=== PATIENT | female | born 1980 | race Caucasian/White ===

== ENCOUNTER 2019-11-13 16:32 | Emergency (ER) | payer SELFPAY ==
--- NOTE | 2019-11-13 16:43 | EDM.PDOC ---
ED HPI GENERAL MEDICAL PROBLEM - General Chief Complaint: Abdominal Pain Stated Complaint: STOMACH PAIN Time Seen by Provider: 11/13/19 16:36 Source of Information: Reports: Patient History Limitations: Reports: No Limitations - History of Present Illness INITIAL COMMENTS - FREE TEXT/NARRATIVE: HISTORY AND PHYSICAL: History of present illness: Patient is a 39-year-old female who presents to the emergency room with complaints of left flank and left upper quadrant pain which started approximately 1 hour prior to arrival. Patient states she is concerned she has a kidney stone although besides the flank and abdominal pain she has not had any urinary symptoms. Has had nausea, "but I think it's because I'm in so much pain". Patient denies any fever, chills, headache, change in vision, syncope or near syncope. Denies any chest pain, back pain, shortness of breath or cough. Denies any vomiting, diarrhea, constipation or dysuria. Has not noted any blood in urine or stool. Denies any chance of , currently on her menses. Patient has been eating and drinking appropriately. Denies any alcohol abuse. Review of systems: As per history of present illness and below otherwise all systems reviewed and negative. Past medical history: As per history of present illness and as reviewed below otherwise noncontributory. Surgical history: As per history of present illness and as reviewed below otherwise noncontributory. Social history: See social history for further information Family history: As per history of present illness and as reviewed below otherwise noncontributory. Physical exam: General: Well developed and well nourished 39 year old female. Alert and orientated x 3. Nontoxic appearing and in no acute distress. HEENT: Atraumatic, normocephalic, pupils equal and reactive bilaterally, negative for conjunctival pallor or scleral icterus, mucous membranes moist, trachea midline. No drooling or trismus noted. No meningeal signs. No hot potato voice noted. Lungs: Clear to auscultation, breath sounds equal bilaterally, chest nontender. Heart: S1S2, regular rate and rhythm without overt murmur Abdomen: Soft, nondistended, LUQ tenderness. Negative for masses or hepatosplenomegaly. Left sided costovertebral tenderness. Skin: Intact, warm, dry. No lesions or rashes noted. Extremities: Atraumatic, moves all extremities per self without difficulty or deficits, negative for cords or calf pain. Neurovascular unremarkable. Neuro: Awake, alert, oriented. Cranial nerves II through XII unremarkable. Cerebellum unremarkable. Motor and sensory unremarkable throughout. Exam nonfocal. Notes: CT shows dilated left ureter with a 2.2 mm stone seen at the UVJ. 7.7 mm nonobstructing calculus in the mid left kidney. I did call Dr. Hare to discuss patient follow-up. He states that this patient can follow-up as needed in the next 7 to 10 days if she feels the pain has not resolved. All findings were shared with the patient. Supportive care measures were reviewed and discussed. Voices understanding and is agreeable to plan of care. Denies any further questions or concerns at this time. Diagnostics: CBC, CMP, Lipase, UA, HCGU Therapeutics: IV fluids, Zofran, Toradol Prescription: Reva, Flomax Impression: Kidney Stone, Left Plan: 1. Increase your oral fluids. 2. Take your medications as prescribed. Call is a narcotic pain medication. Please do not take this medication while driving or needing to be functioning outside of the house as it will cause drowsiness. You can take Ibuprofen for breakthrough pain as well. 3. Follow up with Urology, Dr Yancey as we discussed. Return to the ED as needed as discussed. Definitive disposition and diagnosis as appropriate pending reevaluation and review of above. Left Upper Abdomen Pain Score (Numeric/FACES): 10 - Related Data Allergies Allergy/AdvReac Type Severity Reaction Status Date / Time No Known Allergies Allergy Verified 11/13/19 16:49 Home Meds: Home Meds Acetaminophen/HYDROcodone [Reva 325-5 MG] 1 dose PO Q4H #20 tablet 11/13/19 [Rx ] Tamsulosin HCl [Flomax] 0.4 mg PO DAILY #10 capsule 11/13/19 [Rx] Past Medical History - Past Health History Medical/Surgical History: Denies Medical/Surgical History HEENT History: Reports: None Cardiovascular History: Reports: Heart Murmur Psychiatric History: Reports: None - Infectious Disease History Infectious Disease History: Reports: None - Past Surgical History HEENT Surgical History: Reports: Oral Surgery Social & Family History - Caffeine Use Caffeine Use: Reports: None - Sexual History Sexual History: Reports: Single Partner - Living Situation & Occupation Living situation: Reports: ED ROS GENERAL - Review of Systems Review Of Systems: Comprehensive ROS is negative, except as noted in HPI. ED EXAM, RENAL/ - Physical Exam Exam: See Below (See dictation) Course - Vital Signs Last Recorded V/S: Last Vital Signs Temp 96.7 F L 11/13/19 18:14 Pulse 76 11/13/19 18:35 Resp 18 11/13/19 18:35 BP 93/50 L 11/13/19 18:35 Pulse Ox 100 11/13/19 18:35 - Orders/Labs/Meds Labs: Laboratory Tests 11/13/19 11/13/19 11/13/19 Range/Units 16:48 16:48 17:00 WBC 8.87 (4.0-11.0) K/uL RBC 4.29 L (4.30-5.90) M/uL Hgb 12.1 (12.0-16.0) g/dL Hct 38.2 (36.0-46.0) % MCV 89.0 (80.0-98.0) fL MCH 28.2 (27.0-32.0) pg MCHC 31.7 (31.0-37.0) g/dL RDW Std Deviation 43.3 (28.0-62.0) fl RDW Coeff of Callum 13 (11.0-15.0) % Plt Count 262 (150-400) K/uL MPV 10.00 (7.40-12.00) fL Neut % (Auto) 71.2 (48.0-80.0) % Lymph % (Auto) 19.7 (16.0-40.0) % Randolph % (Auto) 8.1 (0.0-15.0) % Eos % (Auto) 0.8 (0.0-7.0) % Baso % (Auto) 0.2 (0.0-1.5) % Neut # (Auto) 6.3 H (1.4-5.7) K/uL Lymph # (Auto) 1.8 (0.6-2.4) K/uL Randolph # (Auto) 0.7 (0.0-0.8) K/uL Eos # (Auto) 0.1 (0.0-0.7) K/uL Baso # (Auto) 0.0 (0.0-0.1) K/uL Nucleated RBC % 0.0 /100WBC Nucleated RBCs # 0 K/uL Sodium (136-145) mmol/L Potassium (3.5-5.1) mmol/L Chloride (98-107) mmol/L Carbon Dioxide (21.0-32.0) mmol/L BUN (7.0-18.0) mg/dL Creatinine (0.6-1.0) mg/dL Est Cr Clr Drug Dosing mL/min Estimated GFR (MDRD) ml/min Glucose (74-106) mg/dL Calcium (8.5-10.1) mg/dL Total Bilirubin (0.2-1.0) mg/dL AST (15-37) IU/L ALT (14-63) IU/L Alkaline Phosphatase (46-116) U/L Total Protein (6.4-8.2) g/dL Albumin (3.4-5.0) g/dL Globulin (2.6-4.0) g/dL Albumin/Globulin Ratio (0.9-1.6) Lipase (73-393) U/L Urine Color YELLOW Urine Appearance HAZY Urine pH 5.5 (5.0-8.0) Ur Specific [place] >= 1.030 (1.001-1.035) Urine Protein NEGATIVE (NEGATIVE) mg/dL Urine Glucose (UA) NEGATIVE (NEGATIVE) mg/dL Urine Ketones NEGATIVE (NEGATIVE) mg/dL Urine Occult Blood LARGE H (NEGATIVE) Urine Nitrite NEGATIVE (NEGATIVE) Urine Bilirubin NEGATIVE (NEGATIVE) Urine Urobilinogen 0.2 (<2.0) EU/dL Ur Leukocyte Esterase NEGATIVE (NEGATIVE) Urine RBC 2-6 (0-2/HPF) Urine WBC 0-3 (0-5/HPF) Ur Epithelial Cells MODERATE (NONE-FEW) Urine Bacteria FEW (NEGATIVE) Urine Mucus LIGHT (NONE-MOD) Urine HCG, Qual NEGATIVE (NEGATIVE) 11/13/19 Range/Units 17:00 WBC (4.0-11.0) K/uL RBC (4.30-5.90) M/uL Hgb (12.0-16.0) g/dL Hct (36.0-46.0) % MCV (80.0-98.0) fL MCH (27.0-32.0) pg MCHC (31.0-37.0) g/dL RDW Std Deviation (28.0-62.0) fl RDW Coeff of Callum (11.0-15.0) % Plt Count (150-400) K/uL MPV (7.40-12.00) fL Neut % (Auto) (48.0-80.0) % Lymph % (Auto) (16.0-40.0) % Randolph % (Auto) (0.0-15.0) % Eos % (Auto) (0.0-7.0) % Baso % (Auto) (0.0-1.5) % Neut # (Auto) (1.4-5.7) K/uL Lymph # (Auto) (0.6-2.4) K/uL Randolph # (Auto) (0.0-0.8) K/uL Eos # (Auto) (0.0-0.7) K/uL Baso # (Auto) (0.0-0.1) K/uL Nucleated RBC % /100WBC Nucleated RBCs # K/uL Sodium 142 (136-145) mmol/L Potassium 4.1 (3.5-5.1) mmol/L Chloride 104 (98-107) mmol/L Carbon Dioxide 28.9 (21.0-32.0) mmol/L BUN 20 H (7.0-18.0) mg/dL Creatinine 0.8 (0.6-1.0) mg/dL Est Cr Clr Drug Dosing 76.39 mL/min Estimated GFR (MDRD) > 60.0 ml/min Glucose 103 (74-106) mg/dL Calcium 8.6 (8.5-10.1) mg/dL Total Bilirubin 0.2 (0.2-1.0) mg/dL AST 16 (15-37) IU/L ALT 18 (14-63) IU/L Alkaline Phosphatase 61 (46-116) U/L Total Protein 7.2 (6.4-8.2) g/dL Albumin 3.8 (3.4-5.0) g/dL Globulin 3.4 (2.6-4.0) g/dL Albumin/Globulin Ratio 1.1 (0.9-1.6) Lipase 147 (73-393) U/L Urine Color Urine Appearance Urine pH (5.0-8.0) Ur Specific [place] (1.001-1.035) Urine Protein (NEGATIVE) mg/dL Urine Glucose (UA) (NEGATIVE) mg/dL Urine Ketones (NEGATIVE) mg/dL Urine Occult Blood (NEGATIVE) Urine Nitrite (NEGATIVE) Urine Bilirubin (NEGATIVE) Urine Urobilinogen (<2.0) EU/dL Ur Leukocyte Esterase (NEGATIVE) Urine RBC (0-2/HPF) Urine WBC (0-5/HPF) Ur Epithelial Cells (NONE-FEW) Urine Bacteria (NEGATIVE) Urine Mucus (NONE-MOD) Urine HCG, Qual (NEGATIVE) Meds: Medications Discontinued Medications Generic Name Dose Route Start Last Admin Trade Name Freq PRN Reason Stop Dose Admin Sodium Chloride 1,000 mls @ 999 mls/hr 11/13/19 16:48 11/13/19 17:00 Normal Saline IV 11/13/19 17:48 999 mls/hr STAT ONE Administration Ketorolac Tromethamine 30 mg 11/13/19 16:48 11/13/19 17:01 Toradol IVPUSH 11/13/19 16:49 30 mg ONETIME ONE Administration Morphine Sulfate 2 mg 11/13/19 16:56 11/13/19 17:21 Morphine IVPUSH 11/13/19 16:57 2 mg ONETIME ONE Administration Morphine Sulfate 2 mg 11/13/19 17:40 11/13/19 17:50 Morphine IVPUSH 11/13/19 17:41 2 mg ONETIME ONE Administration Ondansetron HCl 4 mg 11/13/19 16:48 11/13/19 17:00 Zofran IVPUSH 11/13/19 16:49 4 mg ONETIME ONE Administration Departure - Departure Time of Disposition: 18:13 Disposition: Home, Self-Care 01 Clinical Impression: Kidney stone on left side - Discharge Information Prescriptions: Acetaminophen/HYDROcodone [Reva 325-5 MG] 1 dose PO Q4H #20 tablet Tamsulosin HCl [Flomax] 0.4 mg PO DAILY #10 capsule Instructions: Kidney Stones, [id number] Referrals: PCP,None [Primary Care Provider] - Forms: ED Department Discharge Additional Instructions: The following information is given to patients seen in the emergency department who are being discharged to home. This information is to outline your options for follow-up care. We provide all patients seen in our emergency department with a follow-up referral. The need for follow-up, as well as the timing and circumstances, are variable depending upon the specifics of your emergency department visit. If you don't have a primary care physician on staff, we will provide you with a referral. We always advise you to contact your personal physician following an emergency department visit to inform them of the circumstance of the visit and for follow-up with them and/or the need for any referrals to a consulting specialist. The emergency department will also refer you to a specialist when appropriate. This referral assures that you have the opportunity for follow-up care with a specialist. All of these measure are taken in an effort to provide you with optimal care, which includes your follow-up. Under all circumstances we always encourage you to contact your private physician who remains a resource for coordinating your care. When calling for follow-up care, please make the office aware that this follow-up is from your recent emergency room visit. If for any reason you are refused follow-up, please contact the [facility] Emergency Department at and asked to speak to the emergency department charge nurse. [facility] [address] [place] [address] [place] [address] 1. Increase your oral fluids. 2. Take your medications as prescribed. Call is a narcotic pain medication. Please do not take this medication while driving or needing to be functioning outside of the house as it will cause drowsiness. You can take Ibuprofen for breakthrough pain as well. 3. Follow up with Urology, Dr Yancey as we discussed. Return to the ED as needed as discussed. Sepsis Event Note - Focused Exam Vital Signs: Vital Signs Temp Pulse Resp BP Pulse Ox 11/13/19 18:35 76 18 93/50 L 100 11/13/19 18:14 96.7 F L 74 18 90/45 L 100 11/13/19 17:30 73 20 91/58 L 100 11/13/19 16:46 96.1 F L 82 20 98/56 L 100 Date Exam was Performed: 11/13/19 Time Exam was Performed: 18:48
[2019-11-13] MEDS ORDERED: Ondansetron 4 MG/2 ML SDV IVPUSH ONE (16:48)
[2019-11-13] MEDS ORDERED: Ketorolac 30 MG/ML SDV IVPUSH ONE (16:48)
[2019-11-13] MEDS ORDERED: Sodium Chloride 0.9% 1,000 ML IV ONE (16:48)
[2019-11-13] MEDS ORDERED: Morphine 2 MG/ML Syringe IVPUSH ONE ×2 (16:56→17:40)
[2019-11-13 17:38] LABS: BLOOD UREA NITROGEN,BUN 20 mg/dL (7.0-18.0); CARBON DIOXIDE,CO2 28.9 mmol/L (21.0-32.0); CHLORIDE,CL 104 mmol/L (98-107); GLUCOSE RANDOM 103 mg/dL (74-106); LIPASE 147 U/L (73-393); POTASSIUM,K 4.1 mmol/L (3.5-5.1); SODIUM,NA 142 mmol/L (136-145)
--- NOTE | 2019-11-13 17:58 | CT ---
CT abdomen and pelvis Technique: Multiple axial sections were obtained from above the dome of the diaphragm inferiorly through the pubic symphysis. Intravenous and oral contrast not utilized. Study performed as a ureteral stone protocol. Findings: Left ureter is mildly dilated. Small calcification is noted within the distal left ureter at the UVJ measuring about 2.2 mm. No other abnormal calcifications are appreciated along the course of the ureters. Large calcification within the mid left kidney is seen measuring 7.7 cm. This presumably represents a nonobstructing calculus. No other abnormal calcifications are seen. Visualized lung bases show nothing acute. Liver contains no focal parenchymal abnormality. Spleen appears within normal limits. Adrenal glands show no nodule. Pancreas shows no discrete abnormality. Aorta shows no aneurysm. Gallbladder contains no calcified gallstones. No retroperitoneal adenopathy or mesenteric abnormalities are seen. No pelvic mass or adenopathy is seen. No free fluid or inflammatory change is seen. Impression: 1. Dilated left ureter with a 2.2 mm stone being seen at the UVJ. 2. 7.7 mm nonobstructing calculus within the mid left kidney. 3. No additional abnormality is appreciated on noncontrast CT study of the abdomen and pelvis. Diagnostic code #3 This report was dictated in MDT
[2019-11-13 18:35] VITALS: BP 93/50; PULSE 76
== END 2019-11-13 18:35 | disposition home or self-care (01) ==
LOC: MW.ED 16:32
DX: N20.2 Calculus of kidney with calculus of ureter (principal); Z79.899 Other long term (current) drug therapy
CPT/HCPCS: 36415; 74176; 80053; 81001; 81025; 83690; 85025; 96361; 96374; 96375; 99284; J1885; J2270; J2405; J7030

== ENCOUNTER 2021-03-11 08:13 | Day surgery (SDC) | payer BC ==
[~2021-03-11 08:13] MED LIST: Sodium Chloride 0.9% 10 ML SDV IV PRN; Sodium Chloride 0.9% 10 ML Syringe FLUSH PRN; Sodium Chloride 0.9% 2.5 ML Syringe FLUSH PRN; ceFAZolin 2 GM in Premix Bag 1 BAG IV ONE
[2021-03-11] MEDS ORDERED: Midazolam 1 MG/ML 2 ML SDV ONE (08:20)
[2021-03-11] MEDS ORDERED: Propofol 200 MG/20 ML SDV ONE (08:20)
[2021-03-11] MEDS ORDERED: fentaNYL 250 MCG/5 ML SDV ONE (08:20)
[2021-03-11] MEDS ORDERED: Ondansetron 4 MG/2 ML SDV ONE (08:22)
[2021-03-11] MEDS ORDERED: Lidocaine 2% 5 ML SDV ONE (08:22)
[2021-03-11] MEDS ORDERED: Glycopyrrolate 0.2 MG/ML SDV ONE (08:22)
[2021-03-11] MEDS ORDERED: Sugammadex Sodium 200 MG/2 ML VIAL ONE (08:22)
[2021-03-11] MEDS ORDERED: Ketorolac 30 MG/ML SDV ONE (08:22)
[2021-03-11] MEDS ORDERED: Rocuronium Bromide 50 MG/5 ML Syringe ONE (08:22)
[2021-03-11] MEDS: Lactated Ringers 1,000 ML IV SCH ×2 (09:07→13:31)
--- NOTE | 2021-03-11 09:31 | PCM.PREANE ---
Preanesthetic Assessment - Anesthesia/Transfusion/Family Hx Anesthesia History: Prior Anesthesia Without Reaction Transfusion History: No Prior Transfusion(s) - Review of Systems Pulmonary: Other (Quit smoking cigarettes 09/09 now vapes) - Physical Assessment NPO Status Date: 03/10/21 NPO Status Time: 22:30 Vital Signs: Last Vital Signs Temp 37.0 C 03/11/21 09:06 Pulse 80 03/11/21 09:06 Resp 16 03/11/21 09:06 BP 94/50 L 03/11/21 09:06 Pulse Ox 100 03/11/21 09:06 Height: 5 ft 2 in Weight: 72.575 kg ASA Class: 2 Airway Class: Mallampati = 2 Thyro-Mental Finger Breadths: 3 Mouth Opening Finger Breadths: 3 - Lab Values: Laboratory Last Values WBC 7.72 K/uL (4.0-11.0) 03/09/21 11:48 RBC 4.45 M/uL (4.30-5.90) 03/09/21 11:48 Hgb 12.5 g/dL (12.0-16.0) 03/09/21 11:48 Hct 39.0 % (36.0-46.0) 03/09/21 11:48 MCV 87.6 fL (80.0-98.0) 03/09/21 11:48 MCH 28.1 pg (27.0-32.0) 03/09/21 11:48 MCHC 32.1 g/dL (31.0-37.0) 03/09/21 11:48 RDW Std Deviation 45.0 fl (28.0-62.0) 03/09/21 11:48 RDW Coeff of Callum 14 % (11.0-15.0) 03/09/21 11:48 Plt Count 301 K/uL (150-400) 03/09/21 11:48 MPV 10.60 fL (7.40-12.00) 03/09/21 11:48 Nucleated RBC % 0.0 /100WBC 03/09/21 11:48 Nucleated RBCs # 0 K/uL 03/09/21 11:48 Sodium 139 mmol/L (136-145) 03/09/21 11:48 Potassium 4.2 mmol/L (3.5-5.1) 03/09/21 11:48 Chloride 104 mmol/L (98-107) 03/09/21 11:48 Carbon Dioxide 32.5 mmol/L (21.0-32.0) H 03/09/21 11:48 BUN 13 mg/dL (7.0-18.0) 03/09/21 11:48 Creatinine 0.8 mg/dL (0.6-1.0) 03/09/21 11:48 Est Cr Clr Drug Dosing 73.93 mL/min 03/09/21 11:48 Estimated GFR (MDRD) > 60.0 ml/min 03/09/21 11:48 Glucose 77 mg/dL (74-106) 03/09/21 11:48 Calcium 8.6 mg/dL (8.5-10.1) 03/09/21 11:48 HCG, Qual NEGATIVE (NEG) 03/09/21 11:48 Blood Type A POSITIVE 03/09/21 11:48 Antibody Screen NEGATIVE 03/09/21 11:48 - Allergies Allergies/Adverse Reactions: Allergies Allergy/AdvReac Type Severity Reaction Status Date / Time No Known Allergies Allergy Verified 03/11/21 09:11 - Acknowledgements Anesthesia Type Planned: General Anesthesia Pt an Appropriate Candidate for the Planned Anesthesia: Yes Alternatives and Risks of Anesthesia Discussed w Pt/Guardian: Yes Pt/Guardian Understands and Agrees with Anesthesia Plan: Yes PreAnesthesia Questionnaire - Past Health History Medical/Surgical History: Denies Medical/Surgical History HEENT History: Reports: Other (See Below) Other HEENT History: wears glasses/contacts Cardiovascular History: Reports: None Respiratory History: Reports: None Gastrointestinal History: Reports: None Genitourinary History: Reports: Renal Calculus, Other (See Below) Other Genitourinary History: stress incontinence [employer] History: Reports: Dysfunctional Uterine Bleeding, Musculoskeletal History: Reports: None, Fracture Neurological History: Reports: None Psychiatric History: Reports: None Endocrine/Metabolic History: Reports: None Hematologic History: Reports: None Immunologic History: Reports: None Oncologic (Cancer) History: Reports: None Dermatologic History: Reports: None - Infectious Disease History Infectious Disease History: Reports: None - Past Surgical History Head Surgeries/Procedures: Reports: None HEENT Surgical History: Reports: Oral Surgery Cardiovascular Surgical History: Reports: None Respiratory Surgical History: Reports: None GI Surgical History: Reports: None Female Surgical History: Reports: Section Endocrine Surgical History: Reports: None Neurological Surgical History: Reports: None Musculoskeletal Surgical History: Reports: None Oncologic Surgical History: Reports: None Dermatological Surgical History: Reports: None - SUBSTANCE USE Tobacco Use Status *Q: Light Tobacco User Tobacco Use Within Last Twelve Months: Vaping - HOME MEDS Home Medications: Home Meds Ferrous Sulfate [Iron] 65 mg PO DAILY 03/05/21 [History] - CURRENT (IN HOUSE) MEDS Current Meds: Current Medications Lactated Ringer's (Ringers, Lactated) 1,000 mls @ 125 mls/hr IV ASDIRECTED NICOLE Last Admin: 03/11/21 09:07 Dose: 125 mls/hr Documented by: Sodium Chloride (Sodium Chloride 0.9% 10 Ml Syringe) 10 ml FLUSH ASDIRECTED PRN PRN Reason: Keep Vein Open Sodium Chloride (Sodium Chloride 0.9% 2.5 Ml Syringe) 2.5 ml FLUSH ASDIRECTED PRN PRN Reason: Keep Vein Open Sodium Chloride (Sodium Chloride 0.9% 10 Ml Sdv) 10 ml IV ASDIRECTED PRN PRN Reason: IV Use Discontinued Medications Fentanyl (Fentanyl 250 Mcg/5 Ml Sdv) Confirm Administered Dose 250 mcg .ROUTE .STK-MED ONE Stop: 03/11/21 08:21 Glycopyrrolate (Glycopyrrolate 0.2 Mg/Ml Sdv) Confirm Administered Dose 0.2 mg .ROUTE .STK-MED ONE Stop: 03/11/21 08:23 Cefazolin Sodium/Dextrose 2 gm (/ Premix) 50 mls @ 100 mls/hr IV ONETIME ONE Stop: 03/09/21 11:15 Ketorolac Tromethamine (Ketorolac 30 Mg/Ml Sdv) Confirm Administered Dose 30 mg .ROUTE .STK-MED ONE Stop: 03/11/21 08:23 Lidocaine (Lidocaine 2% 5 Ml Sdv) Confirm Administered Dose 5 ml .ROUTE .STK-MED ONE Stop: 03/11/21 08:23 Midazolam HCl (Midazolam 1 Mg/Ml 2 Ml Sdv) Confirm Administered Dose 2 mg .ROUTE .STK-MED ONE Stop: 03/11/21 08:21 Ondansetron HCl (Ondansetron 4 Mg/2 Ml Sdv) Confirm Administered Dose 4 mg .ROUTE .STK-MED ONE Stop: 03/11/21 08:23 Propofol (Propofol 200 Mg/20 Ml Sdv) Confirm Administered Dose 200 mg .ROUTE .STK-MED ONE Stop: 03/11/21 08:21 Rocuronium Orlinda (Rocuronium Or[place]inda 50 Mg/5 Ml Syringe) Confirm Administered Dose 50 mg .ROUTE .STK-MED ONE Stop: 03/11/21 08:23 Sugammadex Sodium (Sugammadex Sodium 200 Mg/2 Ml Vial) Confirm Administered Dose 200 mg .ROUTE .STK-MED ONE Stop: 03/11/21 08:23
[2021-03-11] MEDS ORDERED: Sodium Chloride 0.9% 20 ML ONE (09:36)
[2021-03-11] MEDS ORDERED: ceFAZolin 1 GM Vial ONE (09:36)
[2021-03-11] MEDS ORDERED: Ondansetron 4 MG/2 ML SDV IVPUSH PRN (10:54)
[2021-03-11] MEDS ORDERED: Promethazine 25 MG/ML SDV IM PRN (10:54)
[2021-03-11] MEDS ORDERED: Acetaminophen/oxyCODONE 325-5 MG Tab PO PRN (10:54)
[2021-03-11] MEDS ORDERED: Ketorolac 30 MG/ML SDV IVPUSH ONE (10:54)
--- NOTE | 2021-03-11 10:58 | PCM.OPNOTE ---
- General Post-Op/Procedure Note Date of Surgery/Procedure: 03/11/21 Operative Procedure(s): TVH,TVT and Custoscopy Pre Op Diagnosis: CLARISA, bleeding Post-Op Diagnosis: Same Anesthesia Technique: General ET Tube Primary Surgeon: Nikhil Hua EBL in mLs: 100 Complications: None Condition: Good Free Text/Narrative:: Intake & Output 03/10/21 03/11/21 03/11/21 22:59 06:59 14:59 Output Total 50 Balance -50
[2021-03-11] MEDS ORDERED: fentaNYL 100 MCG/2 ML SDV ONE (11:10)
[2021-03-11] MEDS ORDERED: Acetaminophen 1,000 MG in Premix Bag 1 BAG IV PRN (11:12)
[2021-03-11] MEDS: fentaNYL 100 MCG/2 ML SDV IVPUSH PRN ×2 (11:12→11:34)
[2021-03-11] MEDS ORDERED: HYDROmorphone 2 MG/ML Syringe IVPUSH PRN (11:13)
[2021-03-11] MEDS ORDERED: HYDROmorphone 2 MG/ML Syringe ONE (11:23)
[2021-03-11] MEDS: Morphine 4 MG/ML Syringe IVPUSH PRN ×2 (14:25→20:51)
--- NOTE | 2021-03-11 14:31 | OR ---
SURGEON: Nikhil Hua MD DATE OF PROCEDURE: 03/11/2021 PREOPERATIVE DIAGNOSES: Menometrorrhagia, stress urinary incontinence. POSTOPERATIVE DIAGNOSES: Menometrorrhagia, stress urinary incontinence. OPERATIONS PERFORMED: Total vaginal hysterectomy, bilateral salpingectomy preserving both ovaries, Solyx tension-free vaginal tape, and cystoscopy. PRIMARY SURGEON: Nikhil Hua MD THEATER MANAGER: OR tech. ANESTHESIA: General endotracheal intubation. ESTIMATED BLOOD LOSS: 100 mL. COMPLICATIONS: None. FINDINGS: Uterus is about 11 weeks' size. Both ovaries are essentially normal. INDICATION FOR SURGERY: [place] refer to the admit note. DESCRIPTION OF PROCEDURE: The patient was brought to the OR, properly identified, and after adequate level of anesthesia and the patient placed in lithotomy position, prepped and draped in sterile fashion as usual. Straight catheter was used to empty the bladder and a short weighted speculum placed in the vagina. The cervix was grasped with a single-tooth tenaculum and pulled about downward. Using electrocautery, circular incision in the vaginal mucosa around the cervix was done and then the posterior cul-de-sac was entered posteriorly with Seo scissors. The peritoneum and the vagina tagged posteriorly and a short weighted speculum was replaced with a long weighted speculum. The uterosacral ligament identified from both sides, clamped with a curved Zeppelin, transected with 2-0 Vicryl pop-off. The same thing was done with the cardinal ligament. The cervicovesical space was entered anteriorly and the bladder retracted completely away from the operative field and the anterior cul-de-sac was entered. The broad ligament was clamped with a curved Zeppelin from both sides, transected, and suture ligated with 2-0 Vicryl pop-off. The uterine vessel suture ligated at this step, and then the round ligament was clamped with a curved Zeppelin, transected, suture ligated in the same manner. The uterus delivered posteriorly and 90-degree Zeppelin is applied to the superior pedicle from both sides. The tube was included with the specimen, the ovary was preserved, and the superior pedicle tied with a free tie first, twice on both sides. Inspection of the operative field showed no oozing, no bleeding. We proceeded to close the vaginal cuff with 2-0 Vicryl interrupted [id number] suture. Then, attention was paid to the anterior vaginal wall. An inch and a half beneath the umbilicus was infiltrated with copious amount of saline and then opened in the midline and dissected in a tunneling fashion on both sides until I felt the pubic rami on both sides. Then, the Solyx TVT was placed into place with due amount of tension to elevate the urethrovesical angle. Once that was done, the vaginal cuff was closed with 2-0 Vicryl in a continuous interlocking for hemostasis. While we were doing the TVT, we asked the Anesthesia personnel to give the patient the dye, and cystoscopy was performed. The bladder was intact. Both ureteric orifices were seen with the dye coming from both of them. Satisfied with these findings, the procedure ended. The instrument and sponge count was correct. The patient tolerated the procedure well, went to recovery room in stable general condition. SANDRITA FLORES /[id number]
[2021-03-11] MEDS: Ketorolac 30 MG/ML SDV IVPUSH PRN (18:12)
[2021-03-11] MEDS ORDERED: Lactated Ringers 1,000 ML IV SCH (22:00)
[2021-03-12] MEDS: Ketorolac 30 MG/ML SDV IVPUSH PRN (00:24)
[2021-03-12] MEDS: Acetaminophen/oxyCODONE 325-5 MG Tab PO PRN ×2 (05:32→10:17)
[2021-03-12 07:12] LABS: BLOOD UREA NITROGEN,BUN 11 mg/dL (7.0-18.0); CARBON DIOXIDE,CO2 28.8 mmol/L (21.0-32.0); CHLORIDE,CL 106 mmol/L (98-107); GLUCOSE RANDOM 83 mg/dL (74-106); POTASSIUM,K 3.9 mmol/L (3.5-5.1); SODIUM,NA 141 mmol/L (136-145)
[2021-03-12] MEDS ORDERED: Acetaminophen 500 MG Tab PO ONE (08:13)
[2021-03-12 08:46] VITALS: BP 87/53; PULSE 71
--- NOTE | 2021-03-12 09:49 | PCM.SURGPN ---
- General Info Date of Service: 03/12/21 POD#: 1 Functional Status: Reports: Pain Controlled - Review of Systems General: Reports: No Symptoms HEENT: Reports: No Symptoms Pulmonary: Reports: No Symptoms Cardiovascular: Reports: No Symptoms Gastrointestinal: Reports: No Symptoms Genitourinary: Reports: No Symptoms Musculoskeletal: Reports: No Symptoms Skin: Reports: No Symptoms Neurological: Reports: No Symptoms Psychiatric: Reports: No Symptoms - Patient Data Vitals - Most Recent: Last Vital Signs Temp 36.0 C L 03/12/21 08:40 Pulse 71 03/12/21 08:40 Resp 15 03/12/21 08:40 BP 87/53 L 03/12/21 08:40 Pulse Ox 98 03/12/21 08:40 Weight - Most Recent: 72.575 kg I&O - Last 24 Hours: Intake & Output 03/11/21 03/12/21 03/12/21 22:59 06:59 14:59 Intake Total 1460 600 Output Total 500 Balance 960 600 Lab Results Last 24 Hrs: Laboratory Results - last 24 hr 03/12/21 03/12/21 Range/Units 05:18 05:18 WBC 10.58 (4.0-11.0) K/uL RBC 3.70 L (4.30-5.90) M/uL Hgb 10.5 L (12.0-16.0) g/dL Hct 32.4 L (36.0-46.0) % MCV 87.6 (80.0-98.0) fL MCH 28.4 (27.0-32.0) pg MCHC 32.4 (31.0-37.0) g/dL RDW Std Deviation 44.7 (28.0-62.0) fl RDW Coeff of Callum 14 (11.0-15.0) % Plt Count 249 (150-400) K/uL MPV 10.70 (7.40-12.00) fL Neut % (Auto) 73.6 (48.0-80.0) % Lymph % (Auto) 16.3 (16.0-40.0) % [place] % (Auto) 9.5 (0.0-15.0) % Eos % (Auto) 0.4 (0.0-7.0) % Baso % (Auto) 0.2 (0.0-1.5) % Neut # (Auto) 7.8 H (1.4-5.7) K/uL Lymph # (Auto) 1.7 (0.6-2.4) K/uL [place] # (Auto) 1.0 H (0.0-0.8) K/uL Eos # (Auto) 0.0 (0.0-0.7) K/uL Baso # (Auto) 0.0 (0.0-0.1) K/uL Nucleated RBC % 0.0 /100WBC Nucleated RBCs # 0 K/uL Sodium 141 (136-145) mmol/L Potassium 3.9 (3.5-5.1) mmol/L Chloride 106 (98-107) mmol/L Carbon Dioxide 28.8 (21.0-32.0) mmol/L BUN 11 (7.0-18.0) mg/dL Creatinine 0.7 (0.6-1.0) mg/dL Est Cr Clr Drug Dosing 84.49 mL/min Estimated GFR (MDRD) > 60.0 ml/min Glucose 83 (74-106) mg/dL Calcium 7.9 L (8.5-10.1) mg/dL Med Orders - Current: Current Medications Lactated Ringer's (Ringers, Lactated) 1,000 mls @ 125 mls[facility] Last Admin: 03/11/21 13:31 Dose: 125 mls/hr Documented by: Lactated Ringer's (Ringers, Lactated) 1,000 mls @ 125 [facility]ls[facility] Last Admin: 03/11/21 21:53 Dose: 125 mls/hr Documented by: Ketorolac Tromethamine (Ketorolac 30 Mg/Ml Sdv) 30 mg IVPUSH Q6H PRN PRN Reason: Pain (severe 7-10) Stop: 03/16/21 10:54 Last Admin: 03/12/21 00:24 Dose: 30 mg Documented by: Morphine Sulfate (Morphine 4 Mg/Ml Syringe) 4 mg IVPUSH Q2H PRN PRN Reason: Pain (severe 7-10) Last Admin: 03/11/21 20:51 Dose: 4 mg Documented by: Ondansetron HCl (Ondansetron 4 Mg/2 Ml Sdv) 4 mg IVPUSH Q6H PRN PRN Reason: Nausea/Vomiting Last Admin: 03/11/21 16:03 Dose: 4 mg Documented by: Oxycodone/Acetaminophen (Acetaminophen/Oxycodone 325-5 Mg Tab) 1 tab PO Q4H PRN PRN Reason: Pain (moderate 4-6) Last Admin: 03/12/21 05:32 Dose: 1 tab Documented by: Oxycodone/Acetaminophen (Acetaminophen/Oxycodone 325-5 Mg Tab) 2 tab PO Q4H PRN PRN Reason: Pain (moderate 4-6) Promethazine HCl (Promethazine 25 Mg/Ml Sdv) 25 mg IM Q6H PRN PRN Reason: Nausea/Vomiting Sodium Chloride (Sodium Chloride 0.9% 10 Ml Syringe) 10 ml FLUSH ASDIRECTED PRN PRN Reason: Keep Vein Open Sodium Chloride (Sodium Chloride 0.9% 2.5 Ml Syringe) 2.5 ml FLUSH ASDIRECTED PRN PRN Reason: Keep Vein Open Sodium Chloride (Sodium Chloride 0.9% 10 Ml Sdv) 10 ml IV ASDIRECTED PRN PRN Reason: IV Use Discontinued Medications Acetaminophen (Acetaminophen 500 Mg Tab) 1,000 mg PO ONETIME ONE Stop: 03/12/21 08:14 Last Admin: 03/12/21 08:28 Dose: 1,000 mg Documented by: Cefazolin Sodium (Cefazolin 1 Gm Vial) Confirm Administered Dose 2 gm .ROUTE .STK-MED ONE Stop: 03/11/21 09:37 Fentanyl (Fentanyl 250 Mcg/5 Ml Sdv) Confirm Administered Dose 250 mcg .ROUTE .STK-MED ONE Stop: 03/11/21 08:21 Fentanyl (Fentanyl 100 Mcg/2 Ml Sdv) Confirm Administered Dose 100 mcg .ROUTE .STK-MED ONE Stop: 03/11/21 11:11 Last Admin: 03/11/21 13:23 Dose: Not Given Documented by: Fentanyl (Fentanyl 100 Mcg/2 Ml Sdv) 50 mcg IVPUSH Q5M PRN PRN Reason: Pain Last Admin: 03/11/21 11:34 Dose: 50 mcg Documented by: Glycopyrrolate (Glycopyrrolate 0.2 Mg/Ml Sdv) Confirm Administered Dose 0.2 mg .ROUTE .STK-MED ONE Stop: 03/11/21 08:23 Hydromorphone HCl (Hydromorphone 2 Mg/Ml Syringe) 1 mg IVPUSH Q2H PRN PRN Reason: Abdominal Pain Last Admin: 03/11/21 11:27 Dose: 1 mg Documented by: Hydromorphone HCl (Hydromorphone 2 Mg/Ml Syringe) Confirm Administered Dose 2 mg .ROUTE .STK-MED ONE Stop: 03/11/21 11:24 Last Admin: 03/11/21 13:23 Dose: Not Given Documented by: Cefazolin Sodium/Dextrose 2 gm (/ Premix) 50 mls @ 100 mls/hr IV ONETIME ONE Stop: 03/09/21 11:15 Sodium Chloride (Normal Saline) Confirm Administered Dose 20 mls @ as directed .ROUTE .STK-MED ONE Stop: 03/11/21 09:37 Acetaminophen 1,000 mg/ Premix 100 mls @ 400 mls/hr IV Q6H PRN PRN Reason: Pain Ketorolac Tromethamine (Ketorolac 30 Mg/Ml Sdv) Confirm Administered Dose 30 mg .ROUTE .STK-MED ONE Stop: 03/11/21 08:23 Ketorolac Tromethamine (Ketorolac 30 Mg/Ml Sdv) 30 mg IVPUSH ONETIME ONE Stop: 03/11/21 10:55 Last Admin: 03/11/21 10:45 Dose: Not Given Documented by: Lidocaine (Lidocaine 2% 5 Ml Sdv) Confirm Administered Dose 5 ml .ROUTE .STK-MED ONE Stop: 03/11/21 08:23 Midazolam HCl (Midazolam 1 Mg/Ml 2 Ml Sdv) Confirm Administered Dose 2 mg .ROUTE .STK-MED ONE Stop: 03/11/21 08:21 Miscellaneous Medication (Phenylephrine Hcl In 0.9% Nacl 1 Mg/10 Ml Syringe) Confirm Administered Dose 1 mg .ROUTE .STK-MED ONE Stop: 03/11/21 09:55 Ondansetron HCl (Ondansetron 4 Mg/2 Ml Sdv) Confirm Administered Dose 4 mg .ROUTE .STK-MED ONE Stop: 03/11/21 08:23 Propofol (Propofol 200 Mg/20 Ml Sdv) Confirm Administered Dose 200 mg .ROUTE .STK-MED ONE Stop: 03/11/21 08:21 Rocuronium [place] (Rocuronium [place] 50 Mg/5 Ml Syringe) Confirm Administered Dose 50 mg .ROUTE .STK-MED ONE Stop: 03/11/21 08:23 Sugammadex Sodium (Sugammadex Sodium 200 Mg/2 Ml Vial) Confirm Administered Dose 200 mg .ROUTE .STK-MED ONE Stop: 03/11/21 08:23 - Exam Wound/Incisions: Healing Well General: Alert, Oriented HEENT: Pupils Equal Neck: Supple Lungs: Clear to Auscultation, Normal Respiratory Effort Cardiovascular: Regular Rate, Regular Rhythm GI/Abdominal Exam: Normal Bowel Sounds, Soft, Non-Tender, No Organomegaly, No Distention, No Abnormal Bruit, No Mass, Pelvis Stable Extremities: Normal Inspection, Normal Range of Motion, Non-Tender, No Pedal Edema, Normal Capillary Refill Skin: Warm, Dry, Intact Neurological: No New Focal Deficit Psy/Mental Status: Alert, Normal Affect, Normal Mood Sepsis Event Note - Evaluation Sepsis Screening Result: No Definite Risk - Focused Exam Vital Signs: Vital Signs Temp Pulse Resp BP Pulse Ox 03/12/21 08:40 36.0 C L 71 15 87/53 L 98 03/12/21 04:00 36.5 C 72 16 96/54 L 99 03/12/21 00:02 36.4 C 64 14 94/60 99 - Problem List Review Problem List Initiated/Reviewed/Updated: Yes - My Orders Last 24 Hours: Active Orders 24 hr Category Date Time Status Patient Status [ADT] Routine ADT 03/11/21 10:54 Active Notify Provider Vital Signs [RC] ASDIRECTED Care 03/11/21 10:54 Active Oxygen Therapy [RC] ASDIRECTED Care 03/11/21 10:54 Active RT Incentive Spirometry [RC] Q2HWA Care 03/11/21 10:54 Active Up With Assistance [RC] PER UNIT ROUTINE Care 03/11/21 10:54 Active Up ad [place] [RC] PER UNIT ROUTINE Care 03/11/21 10:54 Active Regular Diet [DIET] Diet 03/11/21 Lunch Active Acetaminophen/oxyCODONE [Percocet 325-5 MG] Med 03/11/21 10:54 Active 1 tab PO Q4H PRN Acetaminophen/oxyCODONE [Percocet 325-5 MG] Med 03/11/21 10:54 Active 2 tab PO Q4H PRN Ketorolac [Toradol] Med 03/11/21 10:54 Active 30 mg IVPUSH Q6H PRN Lactated Ringers [Ringers, Lactated] 1,000 ml Med 03/11/21 22:00 Active IV ASDIRECTED Morphine Med 03/11/21 10:54 Active 4 mg IVPUSH Q2H PRN Ondansetron [Zofran] Med 03/11/21 10:54 Active 4 mg IVPUSH Q6H PRN Promethazine [Phenergan] Med 03/11/21 10:54 Active 25 mg IM Q6H PRN Peripheral IV Discontinue [OM.PC] Routine Oth 03/11/21 10:54 Ordered Sequential Compression Device [OM.PC] Per Unit Routine Oth 03/11/21 10:54 Ordered Resuscitation Status Routine Resus Stat 03/11/21 10:54 Ordered Medication Orders Lactated Ringer's (Ringers, Lactated) 1,000 mls @ 125 mls/hr IV ASDIRECTED [facility] Last Admin: 03/11/21 13:31 Dose: 125 mls/hr Documented by: Infusion: 03/11/21 13:31 Dose: 125 mls/hr Documented by: Admin: 03/11/21 09:07 Dose: 125 mls/hr Documented by: MAGGIE Lactated Ringer's (Ringers, Lactated) 1,000 mls @ 125 mls/hr IV ASD[facility]RECTED [facility] Last Admin: 03/11/21 21:53 Dose: 125 mls/hr Documented by: MARYJO Ketorolac Tromethamine (Ketorolac 30 Mg/Ml Sdv) 30 mg IVPUSH Q6H PRN PRN Reason: Pain (severe 7-10) Stop: 03/16/21 10:54 Last Admin: 03/12/21 00:24 Dose: 30 mg Documented by: Admin: 03/11/21 18:12 Dose: 30 mg Documented by: TED Morphine Sulfate (Morphine 4 Mg/Ml Syringe) 4 mg IVPUSH Q2H PRN PRN Reason: Pain (severe 7-10) Last Admin: 03/11/21 20:51 Dose: 4 mg Documented by: Admin: 03/11/21 14:25 Dose: 4 mg Documented by: TED Ondansetron HCl (Ondansetron 4 Mg/2 Ml Sdv) 4 mg IVPUSH Q6H PRN PRN Reason: Nausea/Vomiting Last Admin: 03/11/21 16:03 Dose: 4 mg Documented by: TED Oxycodone/Acetaminophen (Acetaminophen/Oxycodone 325-5 Mg Tab) 1 tab PO Q4H PRN PRN Reason: Pain (moderate 4-6) Last Admin: 03/12/21 05:32 Dose: 1 tab Documented by: JHONY Oxycodone/Acetaminophen (Acetaminophen/Oxycodone 325-5 Mg Tab) 2 tab PO Q4H PRN PRN Reason: Pain (moderate 4-6) Promethazine HCl (Promethazine 25 Mg/Ml Sdv) 25 mg IM Q6H PRN PRN Reason: Nausea/Vomiting Sodium Chloride (Sodium Chloride 0.9% 10 Ml Syringe) 10 ml FLUSH ASDIRECTED PRN PRN Reason: Keep Vein Open Sodium Chloride (Sodium Chloride 0.9% 2.5 Ml Syringe) 2.5 ml FLUSH ASDIRECTED PRN PRN Reason: Keep Vein Open Sodium Chloride (Sodium Chloride 0.9% 10 Ml Sdv) 10 ml IV ASDIRECTED PRN PRN Reason: IV Use - Assessment Assessment (Free Text/Narrative):: Gross total vaginal hysterectomy TVT and cystoscopy postoperative day #1 patient is afebrile vital signs stable she is voiding she is on regular diet and she is not a bleeding her pain is under control. - Plan Plan (Free Text/Narrative):: Planning to send the patient home today the post hysterectomy instruction is given to the patient. The patient for Narco 5/325 for postoperative pain is given she is having an appointment to come to the office in one week
== END 2021-03-12 11:00 | disposition home or self-care (01) ==
LOC: MW.SDS 08:13 → MW.OB 13:08 → MW.SDS 03-12 11:00
PROVIDERS: ATTEND Obstetrics & Gynecology
DX: N72 Inflammatory disease of cervix uteri (principal); N87.9 Dysplasia of cervix uteri, unspecified; N39.3 Stress incontinence (female) (male); D64.9 Anemia, unspecified; N83.8 Other noninflammatory disorders of ovary, fallopian tube and broad ligament; N92.0 Excessive and frequent menstruation with regular cycle
CPT/HCPCS: 36415; 57288; 58262; 80048; 85025; 88307; A9270; C1771; J0690; J1170; J1885; J2250; J2270; J2370; J2405; J2704; J3010; J3490; J7120; 00944; 84703; 85027; 86850; 86900; 86901; J7030

== ENCOUNTER 2023-07-20 09:45 | Day surgery (SDC) | payer BC ==
[~2023-07-20 09:45] MED LIST changes: +Lactated Ringers 1,000 ML IV SCH; -Sodium Chloride 0.9% 10 ML SDV IV PRN; +Sodium Chloride 0.9% 20 ML SDV IV PRN; -ceFAZolin 2 GM in Premix Bag 1 BAG IV ONE
[2023-07-20] MEDS ORDERED: Propofol 200 MG/20 ML SDV ONE (11:05)
[2023-07-20] MEDS ORDERED: Lidocaine 2% 5 ML SDV ONE (11:05)
[2023-07-20 13:20] VITALS: BP 87/48; PULSE 67
== END 2023-07-20 12:13 | disposition home or self-care (01) ==
LOC: MW.SDS 09:45
PROVIDERS: ATTEND Surgery
DX: Z12.11 Encounter for screening for malignant neoplasm of colon (principal); D12.3 Benign neoplasm of transverse colon; K64.9 Unspecified hemorrhoids; K63.5 Polyp of colon; E66.9 Obesity, unspecified; Z68.26 Body mass index [BMI] 26.0-26.9, adult; Z98.890 Other specified postprocedural states; Z79.899 Other long term (current) drug therapy
CPT/HCPCS: 45380; J2704; J7120; 00811; J3490